=== PATIENT | male | born 2000 | race Caucasian/White ===

== ENCOUNTER 2024-02-19 11:31 | Emergency (ER) | payer BC, SELFPAY ==
[2024-02-19 11:42] VITALS: BP 171/99; PULSE 98; RESP 18; TEMP 36.3; O2SAT 98; BMI 28.6
--- NOTE | 2024-02-19 11:55 | ED_ITS ---
HPI - General Adult General Date Seen: 02/19/24 Chief complaint: Extremity Pain/Injury, Upper Stated complaint: tingling in left arm Time Seen by Provider: 02/19/24 11:54 History of Present Illness HPI narrative: 23-year-old generally healthy male presenting to the ER today from his workplace for evaluation of left forearm numbness and tingling and cramping in his left hand. He works as an apprentice photographer on a construction site. In his jaw BS to do a lot of manual labor and repetitive motions such as cutting with this also all and grinding with a napper grinder. Yesterday at work he began to notice some tingling paresthesias on the radial side of his left forearm down into his thumb. They were irritating yesterday because bits of ground material would hit his arm and make it feel tingly. Like pins and needles. It continued to feel numb and tingly yesterday evening. He was able to go back to work this morning. This morning at work addition to the numbness and tingling he also had some crampy pain in that area of his forearm and hand. He was able to move his fingers there was no weakness or clumsiness is for or paralysis, just that he felt cramping. No numbness or pain or weakness affecting his elbow, upper arm, shoulder, neck. No headache. No right-sided weakness. He reported his numbness to his employers at work. They encouraged to come to the ER to be checked out to make sure there was nothing serious. Is otherwise healthy. No history of stroke. No history of diabetes or immune system problems. Related Data Home Medications ?Medication ?Instructions ?Recorded ?Confirmed No Known Home Medications 02/19/24 02/19/24 Allergies Allergy/AdvReac Type Severity Reaction Status Date / Time No Known Drug Allergies Allergy Verified 02/19/24 11:44 Exam Narrative: Exam Narrative: Constitutional: Appears well-developed and well-nourished. Active. Non-toxic appearing. HENT: Head: Atraumatic. No signs of injury. Nose: No nasal discharge. Mouth/Throat: Mucous membranes are moist. Pharynx is normal. Tonsils symmetric. Uvula midline. Airway patent. Eyes: Conjunctivae normal and EOM are normal. Pupils are equal, round, and reactive to light. Right eye exhibits no discharge. Left eye exhibits no discharge. No icterus. Neck: Normal range of motion. Neck supple. No adenopathy. No stridor. Cardiovascular: Normal rate and regular rhythm. No murmur heard. No murmurs, rubs, or gallops. Brisk capillary refill . Symmetric radial artery pulses. Pulmonary/Chest: Effort normal. No stridor. No respiratory distress. No wheezes.No rhonchi. No rales. No retractions. Abdominal: Soft. Bowel sounds are normal. No distension. No mass. There is no tenderness. There is no rebound and no guarding. Musculoskeletal: Normal range of motion. No edema. No tenderness. No deformity. Neurological: Mental status normal. Attention normal. Alert and oriented x3. GCS 15. Memory normal. Speech fluent. Cognition normal. Cranial Nerves intact II-XII except I did not formally test gag or visual acuity. EOMI. Palate elevates symmetrically and tongue protrudes in the midline. Strength: 5/5 trapezius on the right and left 5/5 deltoid on the right and left 5/5 biceps on the right and left 5/5 triceps on the right and left 5/5 vault installer on the right and left 5/5 thumb opposition on the right and le ft 5/5 finger abduction on the right and le ft 5/5 bilateral thumb and index finger and thumb and 5th finger opposition. No weakness in his hands. 5/5 hip flexors (L3) on the right and le ft 5/5 quadriceps (L4) on the right and lef t 5/5 tibialis anterior on the right and l eft 5/5 EHL (L5) on the right and left 5/5 gastrocnemius (S1) on the right and left 5/5 hamstring on the right and left Sensation intact to light touch in his left upper extremity. He has subjective paresthesias in the left radial nerve distribution including the left forearm, and a little bit on the dorsum of the thumb. Normal sensory function in the median and ulnar nerve distributions. Sensation intact to light touch in Both lower extremities (L4-S1). Finger to nose and coordination normal. Gait normal. Skin: Skin is warm. No rash noted. Const: Vital Signs, click to edit/add: Vital Signs - 24 hr 02/19/24 11:42 Temperature 97.3 F L Pulse Rate [Right Pulse Oximeter] 98 Respiratory Rate 18 Blood Pressure [Ri ght Upper Arm] 171/99 H Pulse Oximetry 98 Oxygen Delivery Me thod Room Air Course Course ED Course: I went to the patient's ER room 4 at 11:55 a.m.. He was not present. Vital Signs Vital signs: Initial Vital Signs Temperature 97.3 F L 02/19/24 11:42 Temperature Source Temporal Artery Scan 02/19/24 11:42 Pulse Rate 98 02/19/24 11:42 Respiratory Rate 18 02/19/24 11:42 Blood Pressure 171/99 H 02/19/24 11:42 Blood Pressure Mean 123 H 02/19/24 11:42 Blood Pressure Position Sitting 02/19/24 11:42 Pulse Oximetry 98 02/19/24 11:42 Oxygen Delivery Method Room Air 02/19/24 11:42 Vital Signs Temperature 97.3 F L 02/19/24 11:42 Pulse Rate 98 02/19/24 11:42 Respiratory Rate 18 02/19/24 11:42 Blood Pressure 171/99 H 02/19/24 11:42 Pulse Oximetry 98 02/19/24 11:42 Oxygen Delivery Method Room Air 02/19/24 11:42 Temperature 97.3 F L 02/19/24 11:42 Pulse Rate 98 02/19/24 11:42 Respiratory Rate 18 02/19/24 11:42 Blood Pressure 171/99 H 02/19/24 11:42 Pulse Oximetry 98 02/19/24 11:42 Oxygen Delivery Method Room Air 02/19/24 11:42 Medical Decision Making MDM Narrative Medical decision making narrative: Pleasant generally healthy 23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 Paresthesias map to the distribution of the radial nerve. Suspect this is probably a radial neuropathy, likely related to repetitive use at work. He does not have any recent injury. No report of falling asleep on his left arm to suggest a radial nerve compression at the humeral side. No history of trauma or falls. With isolated neurologic symptoms to the radial or only, this is not really consistent with a stroke. He is not having any neck pain to suggest a cervical radiculopathy. No weakness at this time. At this point I do not think he needs brain MRI or C-spine MRI. There is no evidence for any infection of the forearm. No sign of compartment syndrome. No recent trauma. No evidence for DVT. No sign of arterial vascular compromise. Plan of care would be to give him light duty and or off work for the next 2-3 days to let his arm rest and see if he recovers. If he is not completely improved after that point should follow-up with orthopedics for re-evaluation and consider of EMG to check the radial nerve. He is agreeable to plan of care. Work note provided. Questions answered. 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 This is probably related to overuse and irritation from work. It should get better if you really stick to rest and light duty for the next 2-3 days. You can also use ibuprofen 600 mg every 6 hours as needed. If you have worsening numbness or weakness in your hand, or other areas of numbness in your body, so numbness spreading upward in your arm, or any other concerning symptoms, please come back to the ER right away to be rechecked. If you are not completely improved after 3-4 days, please follow-up with the [facility] Orthopedic Department. You can call [phone] to arrange an ER follow-up appointment. Prescriptions: No Action No Known Home Medications Follow Up/Referrals: Michael South MD [Primary Care Provider] - Stand Alone Forms: [email or web address] Info Instructions
--- OUTSIDE RECORDS SUMMARY | 2024-02-19 12:41 | XMS_ITS | Clinical Summary ---
Author Organization [employer] Address [place], [place] [address] Care Team Providers Care Taker Off Drying Kiln Name Role Phone Pcp, No Primary Care Provider Unavailabl e Allergies No known active allergies Active Problems Problem Noted Date Diagnosed Date GASTROENTERITIS, NON-INFECTIOUS NEC 01/31/2002 Immunizations Name Administration Dates Next Due DTP 11/18/2001 HIB-HepB (Comvax) 09/04/2001 Inactivated Polio Vaccine 09/04/2001 MMR 11/18/2001 Pneumococcal conj 7-Valent (Prevnar 7) 2 Varicella Vaccine 09/04/2001 Family History Medical History Relation Name Comments Genetic Other mother is a gilles betic Relation Name Status Comments Other Social History Tobacco Use Types Packs/Day Years Used Date Smoking Tobacco: Never Assessed Sex and Gender Information Value Date Recorded Sex Assigned at Not on file Gender Identity Not on file Sexual Orientation Not on file Obstetrics History Last Filed Vital Signs Vital Sign Reading Time Taken Comments Blood Pressure 132/64 02/07/2023 8:37 AM CDT Pulse 88 02/07/2023 8:38 AM CDT Temperature 36.9 ??C (98.5 ??F) 02/07/2023 8:10 AM CD T Respiratory Rate 18 02/07/2023 8:10 AM CDT Oxygen Saturation 97% 02/07/2023 8:38 AM CDT Inhaled Oxygen Concentration - - Weight 113.7 kg (250 lb 9.6 oz) 02/07/2023 8:10 AM CDT Height 193 cm (6' 4) 02/07/2023 8:10 AM CDT Body Mass Index 30.5 02/07/2023 8:10 AM CDT Plan of Treatment Health Maintenance Due Date Last Done Comments Tdap 2011 Depression screening for age 12+ 2012 HIV for age 15-65 2015 HPV series for age 9-26 (1 - Male 3-dose series) 2015 BMI (ht and wt on same day) for age 18+ 2018 Hepatitis C screening for ag e 18-79 2018 Tetanus booster 2020 COVID-19 vaccine series (3 - 2022-24 season) 2023 03/20/2021, 02/27/2021 Influenza for age 9-49 03/23/2024 Pneumococcal series for age 6-64 Aged Out 11/18/2001 No longer eligible b ased on patient's age to complete this topic Care Teams Taker Off Drying Kiln Relationship Specialty Start Date End Date Pcp, No . PCP - General 02/07/23
== END 2024-02-19 13:14 | disposition home or self-care (01) ==
LOC: ED 12:39
PROVIDERS: Emergency Provider Emergency Medicine; PCP Family Medicine
DX: G62.9 Polyneuropathy, unspecified (principal)
CPT/HCPCS: 99282; 99283

== ENCOUNTER 2024-02-26 10:53 | Emergency (ER) | payer BC, SELFPAY ==
[2024-02-26 11:03] VITALS: BP 151/91; PULSE 103; RESP 18; TEMP 36.6; O2SAT 98; BMI 28.7
[2024-02-26 11:07] VITALS: RESP 18
--- NOTE | 2024-02-26 11:30 | CRLHL7_ITS ---
For Patients: As a result of the Century Cures Act, medical imaging exams and procedure reports are released immediately into your electronic medical record. You may view this report before your referring provider. If you have questions, please contact your health care provider. INDICATION: Left testicular pain. TECHNIQUE: Ultrasound examination of the scrotum was performed. COMPARISON: None FINDINGS: Right and left testicles are homogeneous in echotexture. No focal testicular lesion. There is symmetric appearing flow in the bilateral testicles. Multiple vessels measuring over 3 mm about the posterolateral left testicle in the area of patient`s pain, consistent with varicocele. Right and left epididymis are within normal limits. No significant hydrocele. The scrotal soft tissues elsewhere as imaged are unremarkable. IMPRESSION: 1. No focal testicular lesion. 2. Left varicocele is in the region of patient`s pain. Dictated by Anil Berg MD @ 02/26/2024 12:16:37 PM Dictated by: Anil Berg MD @ 02/26/2024 12:16:54 (Electronically Signed)
--- NOTE | 2024-02-26 11:37 | ED.GENADULT ---
[facility] - General Adult General Date Seen: 02/26/24 Chief complaint: Unspecified Complaint, Adult Stated complaint: tingling in forearm Time Seen by Provider: 02/26/24 10:59 Source: patient Mode of arrival: ambulatory Limitations: no limitations History of Present Illness HPI narrative: patient is a 23-year-old male presenting to the emergency department for concern of left arm pain. He states he was in the emergency department last week for left arm numbness in stating the volar aspect of his forearm head pins and needle sensation. He was sent home and told to not work for next few days. Symptoms improved he went back to work today and then felt the pop in his medial elbow. He is not having some numbness down his arm again but states is not as bad in feels like his hand isn't quite as strong as it typically is. Does notice pain at the medial epicondyle and pain flexion of the wrist. Has not taking anything for the symptoms yet today. Took ibuprofen yesterday for headache. He also come was concerned about left testicular discomfort. States has been going on for the past month. While it does not feel acutely painful he states it is noticeably different sensations left testicle compared to his right. Denies dysuria, polyuria. Has not had any testicular issues in the past. Related Data Home Medications ?Medication ?Instructions ?Recorded ?Confirmed No Known Home Medications 02/19/24 02/19/24 Allergies Allergy/AdvReac Type Severity Reaction Status Date / Time No Known Drug Allergies Allergy Verified 02/26/24 11:03 Review of Systems Narrative: Pertinent systems reviewed and were negative unless stated in HPI PFSH PFS Social History Smoking Status: Never smoker Do you use any of these nicotine containing products: None How often do you have a drink containing alcohol: never AUDIT-C Alcohol total score: 0 Non-prescribed substance use: denies use Exam Narrative: Exam Narrative: Const: Well-nourished, Well-developed, in mild distress Eyes: PERRL, no conjunctival injection, and symmetrical lids HENT: Atraumatic external nose and ears. Moist mucous membranes. GI: Nontender/Nondistended, No rebound or guarding. : Normal cremasteric reflex bilaterally, no erythema or edema noted to bilateral testes. On tenderness to palpation bilateral testes. MSK:Extremities w/o deformity, Normal Active ROM , pain with passive extension of left wrist and resisted flexion. Tenderness to palpation left medial epicondyle. Skin: Warm, Dry. No rashes or lesions. Neuro: Normal Muscle tone, No focal neurological deficits. Psych: Awake, Alert, & Oriented x3. Appropriate mood and affect. Const: Vital Signs, click to edit/add: Vital Signs - 24 hr 02/26/24 11:03 02/26/24 11:07 Temperature 97.9 F Pulse Rate [Pulse Oximeter] 103 H Respiratory Rate 18 18 Blood Pressure [Le ft Upper Arm] 151/91 H Pulse Oximetry 98 Oxygen Delivery Me thod Room Air Course Vital Signs Vital signs: Initial Vital Signs Temperature 97.9 F 02/26/24 11:03 Temperature Source Temporal Artery Scan 02/26/24 11:03 Pulse Rate 103 H 02/26/24 11:03 Pulse Rhythm Regular 02/26/24 11:03 Respiratory Rate 18 02/26/24 11:03 Blood Pressure 151/91 H 02/26/24 11:03 Blood Pressure Mean 111 H 02/26/24 11:03 Pulse Oximetry 98 02/26/24 11:03 Oxygen Delivery Method Room Air 02/26/24 11:03 Vital Signs Temperature 97.9 F 02/26/24 11:03 Pulse Rate 103 H 02/26/24 11:03 Respiratory Rate 18 02/26/24 11:03 Blood Pressure 151/91 H 02/26/24 11:03 Pulse Oximetry 98 02/26/24 11:03 Oxygen Delivery Method Room Air 02/26/24 11:03 Temperature 97.9 F 02/26/24 11:03 Pulse Rate 103 H 02/26/24 11:03 Respiratory Rate 18 02/26/24 11:07 Blood Pressure 151/91 H 02/26/24 11:03 Pulse Oximetry 98 02/26/24 11:03 Oxygen Delivery Method Room Air 02/26/24 11:03 Medical Decision Making MDM Narrative Medical decision making narrative: Patient is a 23-year-old male presenting for left elbow pain and testicular discomfort. Based on my exam it appears like he is medial epicondylitis. Will have the patient take ibuprofen more frequently and in formalin to rest and ice the area. Do not believe imaging is necessary at this time. he is also having some testicular discomfort. This will do an ultrasound of the testicles at this time. Ultrasound showed a varicocele. I spoke to him about this and he will follow up outpatient. Imaging Data Scrotal ultrasound: Attestation: I have reviewed the pertinent imaging results. Radiologist's impression: 1. No focal testicular lesion. 2. Left varicocele is in the region of patient`s pain. Dictated by Anil Berg MD @ 02/26/2024 12:16:37 PM Discharge Plan Discharge Clinical Impression: Medial epicondylitis, left elbow, Varicocele Patient Disposition: Home, Self-Care Condition: Stable Instructions: Elbow Strain (ED) Additional Instructions: I recommend using ibuprofen at a scheduled time multiple times a day. This will help with inflammation causing your pain. Your scrotal discomfort is from a varicocele and wall it is unlikely to cause further issues and can affect fertility in the future. If this concern to you should follow-up with primary care provider or a urologist Prescriptions: No Action No Known Home Medications Follow Up/Referrals: Michael South MD [Primary Care Provider] - Stand Alone Forms: [employer] Info Instructions
--- OUTSIDE RECORDS SUMMARY | 2024-02-26 11:59 | XMS_ITS | Clinical Summary ---
Author Organization [facility] Address [place], [place] [address] Care Team Providers Care Sleeve Machine Tender Name Role Phone Pcp, No Primary Care [...] 02/07/2023 8:10 AM CDT Plan of Treatment Upcoming Encounters Date Type Department Care Team ([facility] Contact Info) Description 03/07/2024 3:00 PM CDT Office Visit [facility] [id number] [place] [id number] [place] [address] [place] [address] Health Maintenance Due Date Last Done Comments Tdap 2011 Depression screening for age 12+ 2012 HIV for age 15-65 2015 HPV series for age 9-26 (1 - Male 3-dose series) 2015 BMI (ht and wt on same day) for age 18+ 2018 Hepatitis C screening for ag e 18-79 2018 Tetanus booster 2020 COVID-19 vaccine series (2022- season) 2023 03/20/2021, 02/27/2021 Influenza for age 9-49 03/23/2024 Pneumococcal series for age 6-64 Aged Out 11/18/2001 No longer eligible b ased on patient's age to complete this topic Care Teams Sleeve Machine Tender Relationship Specialty Start Date End Date Pcp, No . PCP - General 02/07/23
== END 2024-02-26 12:57 | disposition home or self-care (01) ==
PROVIDERS: Emergency Provider Student in an Organized Health Care Education/Training Program; PCP Family Medicine
DX: M77.02 Medial epicondylitis, left elbow (principal); I86.1 Scrotal varices
CPT/HCPCS: 76870; 93976; 99282; 99283